=== PATIENT | male | born 1980 | race Caucasian/White ===

== ENCOUNTER 2021-04-15 12:22 | Inpatient (IN) | payer MEDICAID ==
[~2021-04-15] VITALS: Ht 167.6 cm; Wt 65.8 kg
--- NOTE | 2021-04-15 12:25 | NUR ---
Pt appears more calm now and states he feels much better.
[2021-04-15] MEDS ORDERED: ASPIRIN 325 MG TABLET PO ONE (12:30)
[2021-04-15] MEDS ORDERED: IV NORMAL SALINE 1000 ML BAG IV ONE (12:30)
[2021-04-15] MEDS ORDERED: ASPIRIN 325 MG TABLET ONE (12:44)
[2021-04-15 12:50] LABS: HEMATOCRIT 41.7 % (36.7-47.1); MEAN CORPUSCULAR HEMOGLOBIN 31.2 uug (23.8-33.4); MEAN CORPUSCULAR VOLUME 91.7 fL (73.0-96.2); PLATELET COUNT (AUTO) 156 K/uL (152-348)
[2021-04-15 12:53] LABS: CREATININE 0.7 mg/dL (0.6-1.3); POTASSIUM 3.8 mmol/L (3.5-5.1)
--- NOTE | 2021-04-15 16:40 | NUR ---
SIZING SPONGER FROM [facility] ACCEPTED THE PT WITH THE FOLLOWING TRANSFER INFO ADMITTING MD DR. JONAS LAGUERRE [facility], , CALLED MULTIPLE AMBULANCES, [facility], [place], [facility], NO ACLS TRANSFER AVAILABLE. Addendum: 04/15/21 at 1655 by SPOVINNIEMANSO AUTHORIZATION FOR AMBULANCE [phone] Addendum: 04/15/21 at 1704 by SPOURMANSO ALSO [facility]
--- NOTE | 2021-04-15 16:51 | NUR ---
PT'SISTER, AN [employer], REQUESTING TO HOLD ON TRANSFER BECAUSE SHE IS COMMUNICATING WITH INSURANCE, SO THE PT CAN BE AUTHORIZED TO STAY HERE.
--- NOTE | 2021-04-15 16:53 | NUR ---
PT AMBULATED WITH STEADY GAIT, PT SAYS FEELS BETTER. VSS
--- NOTE | 2021-04-15 17:08 | NUR ---
PT IS AUTHORIZED BY INSURANCE TO STAY HERE UNDER OBSERVATION.
[2021-04-15 17:31] LABS: *BILIRUBIN,URIN NEGATIVE (NEGATIVE); *BLOOD, URINE NEGATIVE (NEGATIVE); *CLARITY,URINE CLEAR (CLEAR); *COLOR,URINE YELLOW (YELLOW); *KETONES,URINE 2+ (NEGATIVE); *UROBILINOGEN,URINE 0.2 E.U./dl (NORMAL); LEUKOCYTE ESTERASE ,URINE NEGATIVE (NEGATIVE); NITRITE, URINE NEGATIVE (NEGATIVE); PH,URINE 5.5 (5.0-8.0); UGLUCOSE NEGATIVE (NEGATIVE)
[2021-04-15 17:37] LABS: BACTERIA,URINE NONE SEEN /HPF (NONE SEEN); RBC,URINE 0-3 /HPF (0-3); SQUAMOUS EPITHELIAL CELL,UR NONE SEEN /HPF (NONE SEEN); WBC,URINE 0-3 /HPF (0-3)
[2021-04-15 17:41] LABS: *AMPHETAMINE, URINE NEGATIVE (NEGATIVE); *CANNABINOID, URINE NEGATIVE (NEGATIVE); *COCCAINE, URINE NEGATIVE (NEGATIVE); *OPIATE, URINE NEGATIVE (NEGATIVE); *PHENCYCLIDINE SCREEN,URINE NEGATIVE (NEGATIVE)
--- NOTE | 2021-04-15 19:16 | NUR ---
pt a/o denies pain, will transfer pt to room 308.
[2021-04-15] MEDS ORDERED: ONDANSETRON 4 MG/2 ML VIAL IV PRN (20:00)
[2021-04-15] MEDS ORDERED: ZOLPIDEM 5 MG TABLET PO PRN (20:00)
[2021-04-15] MEDS ORDERED: ACETAMINOPHEN 325 MG TABLET PO PRN (20:00)
[2021-04-15] MEDS ORDERED: MAGNESIUM HYDROXIDE 30 ML LIQUID UDC PO PRN (20:00)
--- NOTE | 2021-04-15 20:20 | NUR ---
spoke with oracle data warehouse developer informed of delay with housekeeping and cleaning room 308. She is aware will call back to take pt to room 308.
--- NOTE | 2021-04-15 21:00 | NUR ---
Patient admitted to telemetry, NSR at 60BPM. Patient has no past medical history and reports being healthy otherwise this hospitalization. 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 Reports having one other dizzy spell a few weeks ago and reports diastolic being 39 at that point. Denies any chest pain at this time or dizziness.
--- NOTE | 2021-04-15 21:04 | NUR ---
pt transported to room 308 via [facility] with all belongings. Accompanied by RN. De Paz in room to accept pt.
[2021-04-15 22:00] VITALS: BP 121/57
[2021-04-16 04:00] VITALS: BP 100/52
--- NOTE | 2021-04-16 06:18 | NUR ---
Patient slept intermittently. No changes in mentation. Is able to ambulate to bathroom alone. Telemetry readings this shift is Ryder NSR, lowest is 45 while asleep, HR is 66 at this time. No other significant events. Call light within reach.
[2021-04-16 06:43] LABS: HEMATOCRIT 41.3 % (36.7-47.1); MEAN CORPUSCULAR HEMOGLOBIN 30.7 uug (23.8-33.4); MEAN CORPUSCULAR VOLUME 91.6 fL (73.0-96.2); PLATELET COUNT (AUTO) 147 K/uL (152-348)
[2021-04-16 06:55] LABS: BILIRUBIN,TOTAL 0.6 mg/dL (0.2-1.0); CREATININE 0.7 mg/dL (0.6-1.3); PHOSPHOROUS 3.9 mg/dL (2.5-4.9); POTASSIUM 4.3 mmol/L (3.5-5.1)
--- NOTE | 2021-04-16 07:52 | NUR ---
Medical restraints discontinued. Patient is sleeping comfortably.
[2021-04-16 08:15] VITALS: BP 106/70
--- NOTE | 2021-04-16 11:53 | NUR ---
Pt is a/o x 4, ambulatory, saturating 100% on room air and presenting with normal sinus rhythm on telemetry. Pt is pending echocardiogram to be done. He has no complaint of pain or dizziness at this time. Comfort measure provided, call light within reach, will continue to monitor.
--- NOTE | 2021-04-16 16:19 | NUR ---
pt is discharged. He is ambulatory, going home with private car. Pt's car is in parking lot and his keys are with his sister. Discharge information and education given to pt, no complaint of pain or dizziness at this time. Pt still in hospital as visitor for pt in room 315 but he is stable to walk out and will drive self home. Family aware of discharge.
== END 2021-04-16 16:25 | disposition home or self-care (01) | DRG 204 ==
LOC: ER 12:22 → TELE3 19:38
PROVIDERS: ADMIT Internal Medicine; ATTEND Internal Medicine
DX: R55 Syncope and collapse (principal); I27.20 Pulmonary hypertension, unspecified; F43.9 Reaction to severe stress, unspecified; I44.7 Left bundle-branch block, unspecified; R07.9 Chest pain, unspecified; Z20.822 Contact with and (suspected) exposure to COVID-19
CPT/HCPCS: 36415; 70030-TC; 70450; 71045; 83735; 84100; 85025; 85730; 93005; 93307; A4663; G0378; J7030

== ENCOUNTER 2022-06-27 16:52 | Emergency (ER) | payer MEDICAID ==
[~2022-06-27] VITALS: Ht 167.6 cm; Wt 68.0 kg
--- NOTE | 2022-06-27 17:05 | NUR ---
41 years old male biba from home c/o body pain, gen weakness, occasional dry cough.denies cp, sob nausea vomiting diarrhea.
[2022-06-27] MEDS ORDERED: IV NORMAL SALINE 1000 ML BAG IV ONE (17:15)
[2022-06-27] MEDS ORDERED: KETOROLAC TROMETHAMINE 15 MG INJ ONE (17:54)
[2022-06-27] MEDS ORDERED: KETOROLAC TROMETHAMINE 15 MG INJ IVP ONE (18:00)
--- NOTE | 2022-06-27 19:06 | NUR ---
patient resting awaiting for lab result, follow up with lab and tech stated 5 more minutes report given to incoming RN all questions answered.
[2022-06-27] MEDS ORDERED: IBUP-1955 PO (19:25)
[2022-06-27] MEDS ORDERED: BENZ-13 PO (19:25)
[2022-06-27 19:55] VITALS: BP 103/66
--- NOTE | 2022-06-27 19:55 | NUR ---
Patient discharged to home in stable condition. Written and verbal after care instructions given. Patient verbalizes understanding of instructions. Stressed follow up or return to ER for worsening s/s.
== END 2022-06-27 19:53 | disposition home or self-care (01) ==
LOC: ER 16:53
DX: J06.9 Acute upper respiratory infection, unspecified (principal); R05.9 Cough, unspecified; R09.81 Nasal congestion; Z20.822 Contact with and (suspected) exposure to COVID-19
CPT/HCPCS: 99283; 96374; 86403; U0003; J1885; J7040; A4663